=== PATIENT | female | born 1960 | race Caucasian/White ===

== ENCOUNTER 2021-07-26 12:19 | Emergency (ER) | payer BC, OTHER ==
[~2021-07-26] VITALS: Ht 170.2 cm; Wt 63.5 kg
[2021-07-26] MEDS ORDERED: cefTRIAXone SOD 1,000 MG VL IM ONE (15:15)
[2021-07-26] MEDS ORDERED: AMOXICILLIN/CLAVUL 875 MG TAB PO ONE (15:15)
[2021-07-26] MEDS ORDERED: LIDOCAINE 1% HCL (LOCAL ANESTH.) INJ 20ML MDV ONE (15:39)
[2021-07-26] MEDS ORDERED: TETANUS-DIPTH-ACEL PERTUSSIS 0.5ML SYR Tdap IM ONE (15:45)
[2021-07-26 15:51] VITALS: BP 140/84
[2021-07-26] MEDS ORDERED: BACITRACIN TOP OINT 1 UD PKG TOP ONE (16:30)
== END 2021-07-26 16:35 | disposition home or self-care (01) ==
LOC: ER 12:19
DX: S61.412A Laceration without foreign body of left hand, initial encounter (principal); S61.452A Open bite of left hand, initial encounter; I10 Essential (primary) hypertension; F17.210 Nicotine dependence, cigarettes, uncomplicated; W54.0XXA Bitten by dog, initial encounter; Y93.89 Activity, other specified; Y92.89 Other specified places as the place of occurrence of the external cause; Y99.8 Other external cause status
CPT/HCPCS: 12001; 73130; 90471; 90715; 96372; 99284; J0696; J2001